=== PATIENT | female | born 1960 | race Caucasian/White ===

== ENCOUNTER 2020-08-18 05:26 | Inpatient (IN) | payer MEDICARE, OTHER ==
[~2020-08-18 05:26] MED LIST: ATARAX25 MG PO; BACLOFEN 10MG T10 MG PO; BREO ELLIPTA 11 EACH INH; BUSPIRONE HCL15 MG PO; CYMBALTA60 MG PO; ELAVIL50 MG PO; FEOSOL325 MG PO; KLONOPIN0.5 MG PO; LAXATIVE OF CHOICE PO; LISINOPRIL-HCT1 EAC1 PO; LORTAB PO; NEURONTIN300 MG PO; NEXIUM40 MG PO; OMEGA 3 1,0001 EACH PO; PERCOCET PO; REQUIP1 MG PO; SEROQUEL 100MG100 MG PO; TRILEPTAL150 MG PO; ULTRAM50 MG PO; VERAPAMIL ER240 MG PO; ZOLOFT100 MG PO
[2020-08-18 06:05] LABS: BASOPHIL 0.2 % (0-2); EOSINOPHIL 1.3 % (0-5); HCT 31.3 % (37.0-47.0); HGB 10.4 g/dl (12.5-16.0); MCH 29.3 pg (25.0-31.0); MCHC 33.2 g/dL (32.0-36.0); MCV 88.2 fL (78.0-100.0); MONOCYTE 3.4 % (0-12); MPV 9.9 fL (6.0-9.5); NEUTROPHIL 82.6 % (41-80); NRBC 0; PLT 242 K/uL (150-400); RBC 3.55 M/uL (4.20-5.40); RDW 14.4 % (11.5-14.0); WBC 9.6 K/uL (4.0-10.5)
[2020-08-18 06:18] LABS: LACTIC ACID 0.6 mmol/L (0.4-1.9)
[2020-08-18 06:32] LABS: ALBUMIN 3.1 g/dL (3.4-5.0); ALKALINE PHOSHATASE 122 U/L (46-116); ALT 30 U/L (14-59); AST 39 U/L (15-37); BILIRUBIN - TOTAL 0.3 mg/dL (0.2-1.0); BUN 18 mg/dL (7-18); BUN/CREAT RATIO (CALC) 20.9 RATIO; C-REACTIVE PROTEIN >18.00 mg/dL (<=0.90); CHLORIDE 85 mmol/L (98-107); CO2 (BICARBONATE) 31 mmol/L (21-32); CREATININE 0.86 mg/dL (0.51-0.95); GLOBULIN (CALCULATION) 4.3 g/dL; GLUCOSE 106 mg/dL (74-106); LDH 232 U/L (81-234); POTASSIUM 3.5 mmol/L (3.5-5.1); TOTAL PROTEIN 7.4 g/dL (6.4-8.2)
[2020-08-18 07:18] LABS: BILIRUBIN NEGATIVE (NEGATIVE); BLOOD NEGATIVE Ery/uL (NEGATIVE); CLARITY CLEAR (CLEAR); COLOR YELLOW (YELLOW); GLUCOSE (U) NORMAL (NORMAL); LEUKOCYTES TRACE Leu/uL (NEGATIVE); NITRITE NEGATIVE (NEGATIVE); PROTEIN TRACE (LOW) mg/dL (NEGATIVE); SPECIFIC GRAVITY >=1.030 (1.001-1.030); UROBILINOGEN 0.2 mg/dL (0.2-1.0)
[2020-08-18 07:24] LABS: BACTERIA 1+; SQUAMOUS EPITHELIAL CELLS 20-50
[2020-08-18] MEDS ORDERED: LINZESS72 MCG PO (11:39)
[2020-08-18] MEDS ORDERED: VICODIN 10/3251 EACH PO (11:39)
[2020-08-18] MEDS ORDERED: ATIVAN0.5 MG PO (11:40)
[2020-08-18] MEDS ORDERED: NARCAN4 MG INH (11:42)
[2020-08-18] MEDS ORDERED: LOVAZA1 GM PO (11:42)
[2020-08-18] MEDS ORDERED: PHENERGAN25 M1 PO (11:43)
[2020-08-18] MEDS ORDERED: ZANAFLEX4 MG PO (11:43)
[2020-08-18] MEDS ORDERED: SEROQUEL 50MG T50 MG PO (11:45)
[2020-08-18] MEDS ORDERED: LYRICA 50MG CAP50 MG PO (11:45)
[2020-08-18] MEDS ORDERED: PROAIR HFA8.5 GM INH (11:46)
[2020-08-18 22:03] LABS: CORONAVIRUS 229E NOT DETECTED (NOT DETECT); CORONAVIRUS HKU1 NOT DETECTED (NOT DETECT); CORONAVIRUS NL63 NOT DETECTED (NOT DETECT); CORONAVIRUS OC43 NOT DETECTED (NOT DETECT); HUMAN METAPNEUMO NOT DETECTED (NOT DETECT); INFLUENZA A NOT DETECTED (NOT DETECT); INFLUENZA A 2009 H1N1 NOT DETECTED (NOT DETECT); INFLUENZA A H1 NOT DETECTED (NOT DETECT); INFLUENZA A H3 NOT DETECTED (NOT DETECT); INFLUENZA B NOT DETECTED (NOT DETECT)
[2020-08-18 22:04] LABS: PARAINFLUENZA 1 NOT DETECTED (NOT DETECT); PARAINFLUENZA 2 NOT DETECTED (NOT DETECT); PARAINFLUENZA 3 NOT DETETED (NOT DETECT); PARAINFLUENZA 4 NOT DETECTED (NOT DETECT); RESPIRATORY SYNCYTIAL VIRUS NOT DETECTED (NOT DETECT)
[2020-08-18 22:05] LABS: B. PERTUSSIS DNA NOT DETECTED (NOT DETECT)
[2020-08-18 22:06] LABS: CORONAVIRUS 2019 PCR NOT DETECTED (NOT DETECTD)
[2020-08-19 06:25] LABS: BASOPHIL 0.2 % (0-2); EOSINOPHIL 0.9 % (0-5); HCT 34.5 % (37.0-47.0); HGB 11.4 g/dl (12.5-16.0); LYMPHOCYTE 19.3 % (15-48); MCH 29.6 pg (25.0-31.0); MCV 89.6 fL (78.0-100.0); MONOCYTE 5.2 % (0-12); MPV 9.5 fL (6.0-9.5); NEUTROPHIL 73.7 % (41-80); NRBC 0; PLT 291 K/uL (150-400); RBC 3.85 M/uL (4.20-5.40); RDW 14.7 % (11.5-14.0); WBC 9.2 K/uL (4.0-10.5)
[2020-08-19 06:46] LABS: BUN/CREAT RATIO (CALC) 25.3 RATIO; CREATININE 0.75 mg/dL (0.51-0.95); POTASSIUM 3.7 mmol/L (3.5-5.1)
[2020-08-19 15:05] LABS: CHLAMYDOPHILA PNEUMON DNA PCR NOT DETECTED (NOT DETECT); MYCOPLASMA PNEUMONIAE NOT DETECTED (NOT DETECT)
[2020-08-20] MEDS ORDERED: ZITHROMAX250 MG PO (09:24)
[2020-08-20] MEDS ORDERED: PREDNISONE 20MG20 MG PO (09:24)
[2020-08-20] MEDS ORDERED: CEFDINIR300 MG PO (09:24)
[2020-08-20] MEDS ORDERED: MUCINEX 600MG600 MG PO (09:27)
--- NOTE | 2020-08-20 09:39 | NUR ---
CHECKED WALKING O2 BEFORE BEING DISCHARGED, 95-92%
[2020-08-20] MEDS ORDERED: COMBIVENT RESPIM4 GM INH (10:29)
== END 2020-08-20 10:53 | disposition home or self-care (01) | DRG 193 ==
LOC: FER 05:26 → FMS 09:51
PROVIDERS: Emergency Medicine Emergency Medical Services; ADMIT Allergy & Immunology Allergy
DX: J12.9 Viral pneumonia, unspecified (principal); J96.01 Acute respiratory failure with hypoxia; J44.1 Chronic obstructive pulmonary disease with (acute) exacerbation; G90.50 Complex regional pain syndrome I, unspecified; E87.1 Hypo-osmolality and hyponatremia; J44.0 Chronic obstructive pulmonary disease with (acute) lower respiratory infection; E78.5 Hyperlipidemia, unspecified; I10 Essential (primary) hypertension; M19.90 Unspecified osteoarthritis, unspecified site; K21.9 Gastro-esophageal reflux disease without esophagitis; F31.9 Bipolar disorder, unspecified; Z20.822 Contact with and (suspected) exposure to COVID-19; G25.81 Restless legs syndrome; F41.9 Anxiety disorder, unspecified; E66.9 Obesity, unspecified; Z98.890 Other specified postprocedural states; Z90.710 Acquired absence of both cervix and uterus; Z87.891 Personal history of nicotine dependence; Z79.899 Other long term (current) drug therapy
CPT/HCPCS: 36415; 36600; 71045; 71275; 80048; 80053; 81001; 82728; 82803; 83605; 83615; 84145; 84484; 85025; 85379; 86140; 87040; 87088; 93005; 94010; 94640; 94664; 94760; 94762; J0456; J0696; J2405; J2930; J7050; J7512; Q0169; Q9967; U0002

== ENCOUNTER 2021-08-07 16:28 | Inpatient (IN) | payer MEDICARE, OTHER ==
[~2021-08-07] VITALS: Ht 165.1 cm; Wt 90.8 kg
[~2021-08-07 16:28] MED LIST changes: +ATIVAN0.5 MG PO; +CEFDINIR300 MG PO; +COMBIVENT RESPIM4 GM INH; +LINZESS72 MCG PO; +LOVAZA1 GM PO; +LYRICA 50MG CAP50 MG PO; +MUCINEX 600MG600 MG PO; +NARCAN4 MG INH; +PHENERGAN25 M1 PO; +PREDNISONE 20MG20 MG PO; +PROAIR HFA8.5 GM INH; +SEROQUEL 50MG T50 MG PO; +VICODIN 10/3251 EACH PO; +ZANAFLEX4 MG PO; +ZITHROMAX250 MG PO
[2021-08-07 17:41] LABS: BASOPHIL 0.2 % (0-2); EOSINOPHIL 0.1 % (0-5); HCT 49.1 % (37.0-47.0); HGB 17.5 g/dl (12.5-16.0); LYMPHOCYTE 8.5 % (15-48); MCH 28.7 pg (25.0-31.0); MCHC 35.6 g/dL (32.0-36.0); MCV 80.5 fL (78.0-100.0); MONOCYTE 6.2 % (0-12); MPV 9.7 fL (6.0-9.5); NEUTROPHIL 84.6 % (41-80); NRBC 0; PLT 243 K/uL (150-400); RDW 13.9 % (11.5-14.0); WBC 13.8 K/uL (4.0-10.5)
[2021-08-07 18:13] LABS: ALBUMIN 4.4 g/dL (3.4-5.0); BILIRUBIN - TOTAL 0.5 mg/dL (0.2-1.0); CREATININE 0.75 mg/dL (0.51-0.95); GLOBULIN (CALCULATION) 4.6 g/dL; POTASSIUM 3.8 mmol/L (3.5-5.1)
[2021-08-07 18:17] LABS: CORONAVIRUS 2019 SARS-COV-2 NEGATIVE (NEGATIVE); INFLUENZA A NAA NEGATIVE (NEGATIVE)
[2021-08-07 18:54] LABS: LACTIC ACID 2.1 mmol/L (0.4-1.9)
[2021-08-07 19:24] LABS: BILIRUBIN 1+ mg/dL (NEGATIVE); BLOOD 1+ Ery/uL (NEGATIVE); CLARITY CLEAR (CLEAR); COLOR YELLOW (YELLOW); GLUCOSE (U) NORMAL (NORMAL); LEUKOCYTES NEGATIVE Leu/uL (NEGATIVE); NITRITE NEGATIVE (NEGATIVE); PROTEIN 2+ mg/dL (NEGATIVE); SPECIFIC GRAVITY >=1.030 (1.001-1.030); UROBILINOGEN 0.2 mg/dL (0.2-1.0); pH 6.5 (5.0-9.0)
[2021-08-07 19:28] LABS: AMPHETAMINES NEGATIVE (NEGATIVE); BARBITURATES NEGATIVE (NEGATIVE); ECSTASY (MDMA) NEGATIVE (NEGATIVE); MARIJUANA (THC) NEGATIVE (NEGATIVE); METHADONE NEGATIVE (NEGATIVE); OPIATES NEGATIVE (NEGATIVE); OXYCODONE NEGATIVE (NEGATIVE)
[2021-08-07 19:30] LABS: BACTERIA 4+
[2021-08-08 00:22] LABS: CREATININE 0.77 mg/dL (0.51-0.95); POTASSIUM 3.1 mmol/L (3.5-5.1)
[2021-08-08 12:01] LABS: BUN/CREAT RATIO (CALC) 16.4 RATIO; CREATININE 0.73 mg/dL (0.51-0.95); POTASSIUM 3.5 mmol/L (3.5-5.1)
[2021-08-08] MEDS ORDERED: QUETIAPINE FUM400 MG PO (17:32)
[2021-08-08] MEDS ORDERED: AMLODIPINE BESYL5 MG PO (17:33)
[2021-08-08] MEDS ORDERED: COZAAR100 MG PO (17:36)
[2021-08-08] MEDS ORDERED: OZEMPIC0.25 MG/0. SC (17:46)
[2021-08-08] MEDS ORDERED: PREGABALIN225 MG PO (17:48)
[2021-08-08 21:03] LABS: LACTIC ACID 1.3 mmol/L (0.4-1.9)
[2021-08-08 21:05] LABS: BUN/CREAT RATIO (CALC) 17.1 RATIO; CREATININE 0.82 mg/dL (0.51-0.95); POTASSIUM 3.1 mmol/L (3.5-5.1)
[2021-08-09 06:31] LABS: BASOPHIL 0.3 % (0-2); EOSINOPHIL 0.1 % (0-5); HCT 42.7 % (37.0-47.0); HGB 14.8 g/dl (12.5-16.0); LYMPHOCYTE 16.1 % (15-48); MCH 28.8 pg (25.0-31.0); MCHC 34.7 g/dL (32.0-36.0); MCV 83.2 fL (78.0-100.0); MONOCYTE 6.7 % (0-12); NEUTROPHIL 76.5 % (41-80); NRBC 0; PLT 222 K/uL (150-400); RBC 5.13 M/uL (4.20-5.40); RDW 14.6 % (11.5-14.0); WBC 11.4 K/uL (4.0-10.5)
[2021-08-09 07:04] LABS: ALBUMIN 3.6 g/dL (3.4-5.0); BILIRUBIN - TOTAL 0.5 mg/dL (0.2-1.0); BUN/CREAT RATIO (CALC) 19.5 RATIO; CREATININE 0.77 mg/dL (0.51-0.95); POTASSIUM 3.3 mmol/L (3.5-5.1); TOTAL PROTEIN 7.6 g/dL (6.4-8.2)
[2021-08-10 06:56] LABS: BASOPHIL 0.4 % (0-2); EOSINOPHIL 0.2 % (0-5); HCT 43.6 % (37.0-47.0); HGB 15.2 g/dl (12.5-16.0); LYMPHOCYTE 18.8 % (15-48); MCH 28.7 pg (25.0-31.0); MCHC 34.9 g/dL (32.0-36.0); MCV 82.4 fL (78.0-100.0); MONOCYTE 8.8 % (0-12); MPV 9.2 fL (6.0-9.5); NEUTROPHIL 71.4 % (41-80); NRBC 0; PLT 202 K/uL (150-400); RBC 5.29 M/uL (4.20-5.40); RDW 13.8 % (11.5-14.0); WBC 8.3 K/uL (4.0-10.5)
[2021-08-10 07:36] LABS: BUN/CREAT RATIO (CALC) 18.3 RATIO; CREATININE 0.6 mg/dL (0.51-0.95); POTASSIUM 3.6 mmol/L (3.5-5.1)
[2021-08-10] MEDS ORDERED: VERAPAMIL ER240 MG PO (16:44)
[2021-08-11 07:09] LABS: BASOPHIL 0.5 % (0-2); EOSINOPHIL 0.5 % (0-5); HCT 44.7 % (37.0-47.0); HGB 15.7 g/dl (12.5-16.0); LYMPHOCYTE 21.8 % (15-48); MCH 28.7 pg (25.0-31.0); MCHC 35.1 g/dL (32.0-36.0); MCV 81.7 fL (78.0-100.0); MONOCYTE 9.5 % (0-12); MPV 9.1 fL (6.0-9.5); NEUTROPHIL 67.4 % (41-80); NRBC 0; PLT 223 K/uL (150-400); RBC 5.47 M/uL (4.20-5.40); RDW 13.6 % (11.5-14.0); WBC 7.3 K/uL (4.0-10.5)
[2021-08-11 07:32] LABS: BUN/CREAT RATIO (CALC) 18.8 RATIO; CREATININE 0.64 mg/dL (0.51-0.95); POTASSIUM 3.5 mmol/L (3.5-5.1)
[2021-08-11] MEDS ORDERED: MACRODANTIN50 MG PO (10:22)
[2021-08-11] MEDS ORDERED: COREG 6.25MG6.25 MG PO (10:22)
[2021-08-11] MEDS ORDERED: AMLODIPINE BESYL5 MG PO (10:22)
[2021-08-11] MEDS ORDERED: HYDRALAZINE 10M10 MG PO (10:23)
--- NOTE | 2021-08-11 13:36 | NUR ---
1300--DISCUSSED DISCHARGE INSTRUCTIONS WITH PATIENT. IV REMOVED PRIOR TO DISCHARGE. PATIENT IN STABLE CONDITION. DISCHARGED HOME WITH FAMILY
== END 2021-08-11 13:17 | disposition home or self-care (01) | DRG 871 ==
LOC: FER 16:28 → FMS 08-08 14:42
PROVIDERS: Emergency Medicine; Internal Medicine; Nurse Practitioner Family; ADMIT Family Medicine
DX: A41.1 Sepsis due to other specified staphylococcus (principal); G93.41 Metabolic encephalopathy; N39.0 Urinary tract infection, site not specified; E87.1 Hypo-osmolality and hyponatremia; A41.81 Sepsis due to Enterococcus; Z20.822 Contact with and (suspected) exposure to COVID-19; I16.0 Hypertensive urgency; I11.0 Hypertensive heart disease with heart failure; I50.9 Heart failure, unspecified; K20.90 Esophagitis, unspecified without bleeding; R56.9 Unspecified convulsions; E66.9 Obesity, unspecified; F31.9 Bipolar disorder, unspecified; E78.5 Hyperlipidemia, unspecified; J44.9 Chronic obstructive pulmonary disease, unspecified; F41.9 Anxiety disorder, unspecified; I65.23 Occlusion and stenosis of bilateral carotid arteries; Z88.5 Allergy status to narcotic agent; Z88.8 Allergy status to other drugs, medicaments and biological substances; Z79.899 Other long term (current) drug therapy; Z90.710 Acquired absence of both cervix and uterus; Z68.33 Body mass index [BMI] 33.0-33.9, adult
CPT/HCPCS: 36415; 70450; 71045; 72125; 80048; 80053; 80061; 80202; 80305; 81001; 83605; 83690; 83880; 83930; 84145; 84443; 84484; 85025; 87040; 87076; 87077; 87088; 87186; 93005; 97162; 97166; 97530-GP; 97535; J0360; J0692; J1650; J1885; J1940; J1953; J2405; J2543; J3370; J3490; J7030; J7050; Q9967; U0002

== ENCOUNTER 2022-04-07 19:39 | Inpatient (IN) | payer MEDICARE, OTHER ==
[~2022-04-07] VITALS: Ht 165.1 cm; Wt 78.5 kg
[~2022-04-07 19:39] MED LIST changes: +AMLODIPINE BESYL5 MG PO; +COREG 6.25MG6.25 MG PO; +COZAAR100 MG PO; +HYDRALAZINE 10M10 MG PO; +MACRODANTIN50 MG PO; +OZEMPIC0.25 MG/0. SC; +PREGABALIN225 MG PO; +QUETIAPINE FUM400 MG PO
[2022-04-07 21:59] LABS: BASOPHIL 0.2 % (0-2); EOSINOPHIL 0.1 % (0-5); HCT 46.7 % (37.0-47.0); HGB 16.2 g/dl (12.5-16.0); LYMPHOCYTE 16.7 % (15-48); MCH 30.2 pg (25.0-31.0); MCHC 34.7 g/dL (32.0-36.0); MONOCYTE 10.1 % (0-12); NEUTROPHIL 72.6 % (41-80); NRBC 0; PLT 280 K/uL (150-400); RBC 5.37 M/uL (4.20-5.40); RDW 14.4 % (11.5-14.0); WBC 13.6 K/uL (4.0-10.5)
[2022-04-07 22:18] LABS: ALKALINE PHOSHATASE 127 U/L (46-116); ALT 20 U/L (14-59); AST 22 U/L (15-37); BILIRUBIN - TOTAL 0.7 mg/dL (0.2-1.0); BUN 28 mg/dL (7-18); CHLORIDE 92 mmol/L (98-107); CO2 (BICARBONATE) 29 mmol/L (21-32); GLOBULIN (CALCULATION) 5.1 g/dL; GLUCOSE 99 mg/dL (74-106); POTASSIUM 3.1 mmol/L (3.5-5.1); TOTAL PROTEIN 9.1 g/dL (6.4-8.2)
[2022-04-07 22:33] LABS: CORONAVIRUS 2019 SARS-COV-2 NEGATIVE (NEGATIVE); INFLUENZA A NAA NEGATIVE (NEGATIVE)
[2022-04-07 23:03] LABS: LACTIC ACID 0.9 mmol/L (0.4-1.9)
[2022-04-07 23:36] LABS: BILIRUBIN 2+ mg/dL (NEGATIVE); BLOOD TRACE-INTACT Ery/uL (NEGATIVE); CLARITY HAZY (CLEAR); COLOR YELLOW (YELLOW); GLUCOSE (U) NORMAL (NORMAL); LEUKOCYTES 1+ Leu/uL (NEGATIVE); NITRITE NEGATIVE (NEGATIVE); PROTEIN 3+ mg/dL (NEGATIVE); SPECIFIC GRAVITY >=1.030 (1.001-1.030); pH 6.5 (5.0-9.0)
[2022-04-07 23:40] LABS: AMPHETAMINES NEGATIVE (NEGATIVE); BARBITURATES NEGATIVE (NEGATIVE); ECSTASY (MDMA) NEGATIVE (NEGATIVE); MARIJUANA (THC) NEGATIVE (NEGATIVE); METHADONE NEGATIVE (NEGATIVE); OPIATES NEGATIVE (NEGATIVE); OXYCODONE NEGATIVE (NEGATIVE)
[2022-04-07 23:42] LABS: AMORPHOUS URATES CRYSTALS MODERATE; BACTERIA 2+; MUCOUS TRACE; URINARY WBC 20-50
[2022-04-08 07:28] LABS: BUN/CREAT RATIO (CALC) 35.9 RATIO; CREATININE 0.64 mg/dL (0.51-0.95); POTASSIUM 3.3 mmol/L (3.5-5.1)
[2022-04-08] MEDS ORDERED: HYDROCODON-ACE1 EAC2 PO (08:45)
[2022-04-09 07:06] LABS: HCT 41.8 % (37.0-47.0); HGB 14.2 g/dl (12.5-16.0); MCH 30.1 pg (25.0-31.0); MCV 88.6 fL (78.0-100.0); RBC 4.72 M/uL (4.20-5.40); RDW 14.4 % (11.5-14.0); WBC 7.4 K/uL (4.0-10.5)
[2022-04-09 07:15] LABS: BUN/CREAT RATIO (CALC) 27.8 RATIO; CREATININE 0.79 mg/dL (0.51-0.95)
[2022-04-09] MEDS ORDERED: CEFDINIR300 MG PO (09:26)
== END 2022-04-09 10:15 | disposition home or self-care (01) | DRG 871 ==
LOC: FER 19:39 → FMS 04-08 01:07
PROVIDERS: Allergy & Immunology Allergy; Emergency Medicine; Nurse Practitioner Acute Care; ADMIT Internal Medicine
DX: A41.9 Sepsis, unspecified organism (principal); G93.41 Metabolic encephalopathy; N39.0 Urinary tract infection, site not specified; E87.1 Hypo-osmolality and hyponatremia; Z20.822 Contact with and (suspected) exposure to COVID-19; R65.20 Severe sepsis without septic shock; I16.0 Hypertensive urgency; E87.6 Hypokalemia; K20.90 Esophagitis, unspecified without bleeding; I10 Essential (primary) hypertension; T42.8X5A Adverse effect of antiparkinsonism drugs and other central muscle-tone depressants, initial encounter; T43.015A Adverse effect of tricyclic antidepressants, initial encounter; T43.595A Adverse effect of other antipsychotics and neuroleptics, initial encounter; E78.5 Hyperlipidemia, unspecified; K21.9 Gastro-esophageal reflux disease without esophagitis; F41.9 Anxiety disorder, unspecified; F31.9 Bipolar disorder, unspecified; Z90.710 Acquired absence of both cervix and uterus; Z82.49 Family history of ischemic heart disease and other diseases of the circulatory system; Z80.3 Family history of malignant neoplasm of breast; Z88.5 Allergy status to narcotic agent; Z79.899 Other long term (current) drug therapy
CPT/HCPCS: 36415; 70450; 71045; 80048; 80053; 80305; 81001; 82550; 83605; 84439; 84443; 84484; 85025; 87040; 87088; 93005; 94640; 94760; G0480; J0360; J0692; J0696; J1650; J7030; U0002